=== PATIENT | female | born 1975 | race Caucasian/White ===

== ENCOUNTER 2024-08-31 22:31 | Emergency (ER) | payer MEDICAID, SELFPAY ==
[2024-08-31 22:32] VITALS: BP 138/84; PULSE 68; RESP 18; TEMP 36.6; O2SAT 98; BMI 29.0
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
[2024-08-31] MEDS: LORazepam 1 MG Tablet 2 MG PO (23:24)
[2024-08-31] MEDS: Azithromycin 250 MG Tablet 1000 MG PO (23:25)
[2024-08-31] MEDS: Ceftriaxone 500 MG Vial IM (23:25)
== END 2024-08-31 23:28 | disposition home or self-care (01) ==
PROVIDERS: Emergency Provider Emergency Medicine; Visit Provider Emergency Medicine
DX: F41.9 Anxiety disorder, unspecified (principal); Z11.3 Encounter for screening for infections with a predominantly sexual mode of transmission; F43.10 Post-traumatic stress disorder, unspecified
CPT/HCPCS: 96372; 99284